=== PATIENT | male | born 1945 | race Asian ===

== ENCOUNTER → 2017-09-07 | Outpatient (CLI) | payer MEDICARE, OTHER ==
[~2017-09-07] MED LIST: ATOR10TA PO; DIL60T PO; DOCU100T15 PO; FER325T PO; GLIM1TAB2 PO; HYDR-4683 PO; PANT1INJ3 PO; SOTA80TA20 PO; TAM04C PO
[2017-09-07 15:52] LABS: Basophils # (auto) 0 uL; Basophils % (auto) 0.5 % (0.0-2.0); Eosinophils # (auto) 0.6 uL; Hemoglobin 12.1 g/dL (13.5-17.5); Lymphocytes # (auto) 1.3 uL; Lymphocytes % (auto) 14.5 % (10.0-50.0); Mean Corpuscular Hemoglobin 31.5 pg (28.0-32.0); Mean Corpuscular Hgb Conc. 32.7 g/dL (32.0-36.0); Mean Corpuscular Volume 96.3 fL (80.0-100.0); Monocytes # (auto) 0.8 uL; Monocytes % (auto) 8.6 % (0.0-12.0); Neutrophils # (auto) 6.4 uL; Neutrophils % (auto) 69.4 % (37.0-80.0); Nucleated Red Blood Cells % 0.1 %; Platelet Count (auto) 287 10^3/uL (140-450); Red Blood Cells 3.85 10^6/uL (4.5-5.90); Red Cell Distribution Width 18.6 % (11.8-14.3); White Blood Cell 9.2 10^3/uL (4.4-10.8)
[2017-09-07 16:39] LABS: BUN/Creatinine Ratio 10.3; Calcium 8.7 mg/dL (8.5-10.1)
== END | disposition home or self-care (01) ==
LOC: LAB 15:28
PROVIDERS: ATTEND Specialist
DX: I13.0 Hypertensive heart and chronic kidney disease with heart failure and stage 1 through stage 4 chronic kidney disease, or unspecified chronic kidney disease (principal); I50.9 Heart failure, unspecified; E11.22 Type 2 diabetes mellitus with diabetic chronic kidney disease; N18.3 Chronic kidney disease, stage 3 (moderate); J44.9 Chronic obstructive pulmonary disease, unspecified; Z79.899 Other long term (current) drug therapy
CPT/HCPCS: 36415; 80048; 83880; 85025

== ENCOUNTER → 2017-10-30 | Outpatient (CLI) | payer MEDICARE, OTHER ==
[2017-10-30 16:58] LABS: Basophils # (auto) 0.1 uL; Eosinophils # (auto) 0.9 uL; Eosinophils % (auto) 9.7 % (0.0-7.0); Hematocrit 41.4 % (41.0-53.0); Hemoglobin 13.7 g/dL (13.5-17.5); Lymphocytes # (auto) 2.1 uL; Lymphocytes % (auto) 22.7 % (10.0-50.0); Mean Corpuscular Hemoglobin 32.6 pg (28.0-32.0); Mean Corpuscular Hgb Conc. 33.2 g/dL (32.0-36.0); Mean Corpuscular Volume 98.2 fL (80.0-100.0); Monocytes # (auto) 0.9 uL; Monocytes % (auto) 9.5 % (0.0-12.0); Neutrophils # (auto) 5.2 uL; Neutrophils % (auto) 57.1 % (37.0-80.0); Nucleated Red Blood Cells % 0.3 %; Platelet Count (auto) 249 10^3/uL (140-450); Red Blood Cells 4.21 10^6/uL (4.5-5.90); Red Cell Distribution Width 15.6 % (11.8-14.3); White Blood Cell 9.1 10^3/uL (4.4-10.8)
[2017-10-30 18:19] LABS: Albumin 3.6 g/dL (3.4-5.0); BUN/Creatinine Ratio 12.6; Bilirubin, Total 0.6 mg/dL (0.2-1.0); Calcium 9.6 mg/dL (8.5-10.1); Potassium 4.8 mmol/L (3.5-5.1); Total Protein 7.8 g/dL (6.4-8.2)
[2017-10-30 18:24] LABS: Cortisol,PM 20.4 ug/dL (3.09-16.66); Free T4 (Free Thyroxine) 1.05 ng/dL (0.89-1.76)
== END | disposition home or self-care (01) ==
LOC: LAB 16:28
PROVIDERS: ATTEND Internal Medicine
DX: E11.9 Type 2 diabetes mellitus without complications (principal); I25.10 Atherosclerotic heart disease of native coronary artery without angina pectoris
CPT/HCPCS: 36415; 80053; 82533; 83036; 84439; 84443; 85025

== ENCOUNTER → 2017-11-11 | Outpatient (CLI) | payer MEDICARE, OTHER ==
[2017-11-11 15:15] LABS: BUN/Creatinine Ratio 12.9; Potassium 4.5 mmol/L (3.5-5.1)
== END | disposition home or self-care (01) ==
LOC: LAB 14:15
PROVIDERS: ATTEND Internal Medicine
DX: I12.9 Hypertensive chronic kidney disease with stage 1 through stage 4 chronic kidney disease, or unspecified chronic kidney disease (principal); E11.22 Type 2 diabetes mellitus with diabetic chronic kidney disease; N18.3 Chronic kidney disease, stage 3 (moderate)
CPT/HCPCS: 36415; 80048

== ENCOUNTER → 2017-12-01 | Outpatient (CLI) | payer MEDICARE, OTHER | END | disposition home or self-care (01) | LOC: LAB 10:54 | PROVIDERS: ATTEND Internal Medicine | DX: I48.91 Unspecified atrial fibrillation (principal); I12.9 Hypertensive chronic kidney disease with stage 1 through stage 4 chronic kidney disease, or unspecified chronic kidney disease; E11.22 Type 2 diabetes mellitus with diabetic chronic kidney disease; N18.3 Chronic kidney disease, stage 3 (moderate); Z79.899 Other long term (current) drug therapy; Z79.4 Long term (current) use of insulin | CPT/HCPCS: 36415; 80162 ==

== ENCOUNTER → 2017-12-15 | Outpatient (CLI) | payer MEDICARE, OTHER | END | disposition home or self-care (01) | LOC: Rad HDHVI 14:41 | PROVIDERS: ATTEND Internal Medicine Cardiovascular Disease | DX: I08.3 Combined rheumatic disorders of mitral, aortic and tricuspid valves (principal); I31.3 Pericardial effusion (noninflammatory); I49.8 Other specified cardiac arrhythmias; I10 Essential (primary) hypertension; I70.0 Atherosclerosis of aorta; Z95.0 Presence of cardiac pacemaker; Z95.1 Presence of aortocoronary bypass graft | CPT/HCPCS: 93306 ==

== ENCOUNTER → 2018-01-13 | Outpatient (CLI) | payer MEDICARE, OTHER ==
[~2018-01-13] MED LIST changes: +APIX2.5T OR; +ASPI81CH43 PO; +ATOR20TA PO; +DIGO0.2570 PO; +FLUC100T PO; +FLUC150T38 PO; +LISI10TA6 PO; +METO-158 PO; +TRAM50TA2 PO
== END | disposition home or self-care (01) ==
LOC: XYW 14:47
PROVIDERS: ATTEND Thoracic Surgery (Cardiothoracic Vascular Surgery)
DX: I25.10 Atherosclerotic heart disease of native coronary artery without angina pectoris (principal); Z95.1 Presence of aortocoronary bypass graft; R23.8 Other skin changes; I12.9 Hypertensive chronic kidney disease with stage 1 through stage 4 chronic kidney disease, or unspecified chronic kidney disease; E11.22 Type 2 diabetes mellitus with diabetic chronic kidney disease; N18.2 Chronic kidney disease, stage 2 (mild)
CPT/HCPCS: 71250

== ENCOUNTER → 2018-01-13 | Outpatient (CLI) | payer MEDICARE, OTHER | END | disposition home or self-care (01) | LOC: LAB 14:57 | PROVIDERS: ATTEND Thoracic Surgery (Cardiothoracic Vascular Surgery) | DX: R23.8 Other skin changes (principal); I12.9 Hypertensive chronic kidney disease with stage 1 through stage 4 chronic kidney disease, or unspecified chronic kidney disease; E11.22 Type 2 diabetes mellitus with diabetic chronic kidney disease; N18.3 Chronic kidney disease, stage 3 (moderate); Z79.899 Other long term (current) drug therapy | CPT/HCPCS: 87205 ==

== ENCOUNTER → 2018-01-13 | Outpatient (CLI) | payer MEDICARE, OTHER ==
[2018-01-13 15:45] LABS: Basophils # (auto) 0.1 uL; Basophils % (auto) 1.1 % (0.0-2.0); Eosinophils # (auto) 0.8 uL; Eosinophils % (auto) 7.4 % (0.0-7.0); Hematocrit 44.9 % (41.0-53.0); Lymphocytes # (auto) 2.2 uL; Lymphocytes % (auto) 19.8 % (10.0-50.0); Mean Corpuscular Hemoglobin 31.2 pg (28.0-32.0); Mean Corpuscular Hgb Conc. 33.5 g/dL (32.0-36.0); Mean Corpuscular Volume 93.1 fL (80.0-100.0); Monocytes % (auto) 8.6 % (0.0-12.0); Neutrophils % (auto) 63.1 % (37.0-80.0); Platelet Count (auto) 221 10^3/uL (140-450); Red Blood Cells 4.82 10^6/uL (4.5-5.90); White Blood Cell 11.1 10^3/uL (4.4-10.8)
[2018-01-13 16:24] LABS: Albumin 4.1 g/dL (3.4-5.0); BUN/Creatinine Ratio 9.9; Bilirubin, Total 1.4 mg/dL (0.2-1.0); Calcium 9.6 mg/dL (8.5-10.1); Potassium 4.5 mmol/L (3.5-5.1); Total Protein 8.1 g/dL (6.4-8.2)
== END | disposition home or self-care (01) ==
LOC: LAB 15:18
PROVIDERS: ATTEND Thoracic Surgery (Cardiothoracic Vascular Surgery)
DX: R23.8 Other skin changes (principal); I12.9 Hypertensive chronic kidney disease with stage 1 through stage 4 chronic kidney disease, or unspecified chronic kidney disease; E11.22 Type 2 diabetes mellitus with diabetic chronic kidney disease; N18.3 Chronic kidney disease, stage 3 (moderate)
CPT/HCPCS: 36415; 80053; 85025

== ENCOUNTER → 2018-01-20 | Outpatient (CLI) | payer MEDICARE, OTHER | END | disposition home or self-care (01) | LOC: LAB 10:13 | PROVIDERS: ATTEND Internal Medicine Cardiovascular Disease | DX: I48.0 Paroxysmal atrial fibrillation (principal); I25.10 Atherosclerotic heart disease of native coronary artery without angina pectoris; I12.9 Hypertensive chronic kidney disease with stage 1 through stage 4 chronic kidney disease, or unspecified chronic kidney disease; N18.3 Chronic kidney disease, stage 3 (moderate); E11.22 Type 2 diabetes mellitus with diabetic chronic kidney disease; J44.9 Chronic obstructive pulmonary disease, unspecified; E11.65 Type 2 diabetes mellitus with hyperglycemia; E11.21 Type 2 diabetes mellitus with diabetic nephropathy; E78.5 Hyperlipidemia, unspecified; Z79.4 Long term (current) use of insulin; Z79.899 Other long term (current) drug therapy | CPT/HCPCS: 36415; 80162; 87205 ==

== ENCOUNTER → 2018-01-20 | Outpatient (CLI) | payer MEDICARE, OTHER ==
[2018-01-20 09:36] LABS: Basophils # (auto) 0.1 uL; Basophils % (auto) 0.7 % (0.0-2.0); Eosinophils # (auto) 0.9 uL; Eosinophils % (auto) 9.1 % (0.0-7.0); Hematocrit 45.2 % (41.0-53.0); Lymphocytes # (auto) 1.8 uL; Lymphocytes % (auto) 18.1 % (10.0-50.0); Mean Corpuscular Hemoglobin 31.3 pg (28.0-32.0); Mean Corpuscular Hgb Conc. 33.1 g/dL (32.0-36.0); Mean Corpuscular Volume 94.5 fL (80.0-100.0); Monocytes # (auto) 0.9 uL; Monocytes % (auto) 9.6 % (0.0-12.0); Neutrophils % (auto) 62.5 % (37.0-80.0); Platelet Count (auto) 207 10^3/uL (140-450); Red Blood Cells 4.78 10^6/uL (4.5-5.90); Red Cell Distribution Width 14.6 % (11.8-14.3); White Blood Cell 9.7 10^3/uL (4.4-10.8)
== END | disposition home or self-care (01) ==
LOC: LAB 09:10
PROVIDERS: ATTEND Thoracic Surgery (Cardiothoracic Vascular Surgery)
DX: D68.9 Coagulation defect, unspecified (principal); I25.10 Atherosclerotic heart disease of native coronary artery without angina pectoris; J44.9 Chronic obstructive pulmonary disease, unspecified; E78.5 Hyperlipidemia, unspecified; I12.9 Hypertensive chronic kidney disease with stage 1 through stage 4 chronic kidney disease, or unspecified chronic kidney disease; N18.2 Chronic kidney disease, stage 2 (mild); E11.22 Type 2 diabetes mellitus with diabetic chronic kidney disease; E11.65 Type 2 diabetes mellitus with hyperglycemia; Z79.899 Other long term (current) drug therapy; Z95.1 Presence of aortocoronary bypass graft; Z79.4 Long term (current) use of insulin
CPT/HCPCS: 36415; 85025

== ENCOUNTER → 2018-02-01 | Outpatient (CLI) | payer MEDICARE, OTHER ==
[~2018-02-01] MED LIST changes: +ETOMIDATE (2MG/ML) 20ML VIAL IV ONE; +MIDAZOLAM HCL 1MG/1ML-2 ML VIAL ONE; +ONDANSETRON HCL 4 MG/2 ML VIAL ONE; +ROCURONIUM 10MG/ML 10ML VIAL IV ONE; +SUCCINYLCHOLINE CHLORIDE 20 MG/ML 10ML VIAL IV ONE; +fentaNYL CITRATE 100 MCG/2 ML VL ONE
== END | disposition home or self-care (01) ==
LOC: XYW 10:52
PROVIDERS: ATTEND Thoracic Surgery (Cardiothoracic Vascular Surgery)
DX: Z01.810 Encounter for preprocedural cardiovascular examination (principal); I25.10 Atherosclerotic heart disease of native coronary artery without angina pectoris; I08.2 Rheumatic disorders of both aortic and tricuspid valves
CPT/HCPCS: 93306

== ENCOUNTER 2018-02-04 23:00 | Inpatient (IN) | payer MEDICARE, OTHER ==
[~2018-02-04] VITALS: Ht 172.7 cm; Wt 68.0 kg
[~2018-02-04 23:00] MED LIST changes: -ATOR10TA PO; -DIL60T PO; -DOCU100T15 PO; -ETOMIDATE (2MG/ML) 20ML VIAL IV ONE; -FLUC100T PO; -GLIM1TAB2 PO; -HYDR-4683 PO; -MIDAZOLAM HCL 1MG/1ML-2 ML VIAL ONE; -ONDANSETRON HCL 4 MG/2 ML VIAL ONE; -PANT1INJ3 PO; -ROCURONIUM 10MG/ML 10ML VIAL IV ONE; -SOTA80TA20 PO; -SUCCINYLCHOLINE CHLORIDE 20 MG/ML 10ML VIAL IV ONE; -TAM04C PO; -fentaNYL CITRATE 100 MCG/2 ML VL ONE
[2018-02-05 00:15] LABS: Basophils # (auto) 0.1 uL; Basophils % (auto) 0.6 % (0.0-2.0); Eosinophils # (auto) 0.4 uL; Eosinophils % (auto) 4.1 % (0.0-7.0); Hematocrit 36.6 % (41.0-53.0); Hemoglobin 12.2 g/dL (13.5-17.5); Lymphocytes # (auto) 1.3 uL; Lymphocytes % (auto) 13.7 % (10.0-50.0); Mean Corpuscular Hemoglobin 31.2 pg (28.0-32.0); Mean Corpuscular Hgb Conc. 33.3 g/dL (32.0-36.0); Mean Corpuscular Volume 93.7 fL (80.0-100.0); Monocytes # (auto) 0.8 uL; Monocytes % (auto) 8.9 % (0.0-12.0); Neutrophils # (auto) 6.9 uL; Neutrophils % (auto) 72.7 % (37.0-80.0); Platelet Count (auto) 191 10^3/uL (140-450); Red Cell Distribution Width 14.6 % (11.8-14.3); White Blood Cell 9.5 10^3/uL (4.4-10.8)
[2018-02-05 00:31] LABS: Albumin 2.8 g/dL (3.4-5.0); BUN/Creatinine Ratio 13.3; Calcium 8.1 mg/dL (8.5-10.1); Magnesium 2.1 mg/dL (1.6-2.6); Potassium 4.6 mmol/L (3.5-5.1)
[2018-02-05 00:35] LABS: Bilirubin, Total 0.5 mg/dL (0.2-1.0); Total Protein 6.1 g/dL (6.4-8.2)
[2018-02-05 00:36] LABS: INR 1.04 (0.9-1.15); Partial Thromboplastin Time 31.6 sec (23.78-33.04); Prothrombin Time 11.1 sec (9.27-12.13)
[2018-02-05] MEDS ORDERED: ONDANSETRON HCL 4 MG/2 ML VIAL IV PRN (06:00)
[2018-02-05 06:28] LABS: Hematocrit 35.5 % (41.0-53.0); Hemoglobin 12.1 g/dL (13.5-17.5)
[2018-02-05] MEDS ORDERED: APIXABAN 2.5 MG TAB PO SCH (10:00)
[2018-02-05] MEDS ORDERED: DIGOXIN 0.125 MG TAB PO SCH (10:00)
[2018-02-05] MEDS ORDERED: PANTOPRAZOLE 40 MG TAB PO SCH (10:00)
[2018-02-05] MEDS ORDERED: LISINOPRIL 20 MG TAB PO SCH (10:00)
[2018-02-05 13:00] VITALS: BP 179/101
[2018-02-05] MEDS ORDERED: cloNIDine HCL 0.1 MG TAB PO PRN (14:00)
[2018-02-05] MEDS ORDERED: SODIUM CHLORIDE 0.9% 1,000 ML IV ONE (16:00)
[2018-02-05] MEDS ORDERED: SODIUM CHLORIDE 0.9% 250 ML IV ONE (16:15)
[2018-02-05 16:39] VITALS: BP 138/76
[2018-02-05 17:22] VITALS: BP 138/76
[2018-02-05 17:44] VITALS: BP 138/76
[2018-02-05] MEDS ORDERED: ATORVASTATIN 20 MG TAB PO SCH (22:00)
[2018-02-05] MEDS ORDERED: METOPROLOL SUCCINATE XL 50 MG TAB PO SCH (22:00)
== END 2018-02-05 18:53 | disposition home or self-care (01) | DRG 863 ==
LOC: EDBD 23:00 → ER 23:09 → CENTRAL 23:10 → ER 02-05 11:25 → TELE-CENTR 02-05 12:14
PROVIDERS: ADMIT Nurse Practitioner; ATTEND Nurse Practitioner
PROC: 2W04X6Z Change Pressure Dressing on Chest Wall (ICD-10-PCS; principal; 2018-02-04)
DX: T81.4XXA Infection following a procedure, initial encounter (principal); D68.9 Coagulation defect, unspecified; I13.0 Hypertensive heart and chronic kidney disease with heart failure and stage 1 through stage 4 chronic kidney disease, or unspecified chronic kidney disease; N17.9 Acute kidney failure, unspecified; E11.22 Type 2 diabetes mellitus with diabetic chronic kidney disease; E78.5 Hyperlipidemia, unspecified; F17.210 Nicotine dependence, cigarettes, uncomplicated; I25.10 Atherosclerotic heart disease of native coronary artery without angina pectoris; S60.511A Abrasion of right hand, initial encounter; W18.39XA Other fall on same level, initial encounter; I50.9 Heart failure, unspecified; I48.2 Chronic atrial fibrillation; I95.9 Hypotension, unspecified; J44.9 Chronic obstructive pulmonary disease, unspecified; N18.9 Chronic kidney disease, unspecified; Z95.0 Presence of cardiac pacemaker; Z95.1 Presence of aortocoronary bypass graft; Y93.89 Activity, other specified; Y92.89 Other specified places as the place of occurrence of the external cause; Y99.8 Other external cause status; Z88.6 Allergy status to analgesic agent; Z88.8 Allergy status to other drugs, medicaments and biological substances; Z79.899 Other long term (current) drug therapy; Z90.49 Acquired absence of other specified parts of digestive tract; I25.2 Old myocardial infarction; N18.3 Chronic kidney disease, stage 3 (moderate)
CPT/HCPCS: 36415; 71045; 71250; 80053; 82962; 83735; 84443; 84484; 85014; 85018; 85025; 85379; 85610; 85730; 87081; 93005; 93306; 96360

== ENCOUNTER 2018-02-06 23:39 | Emergency (ER) | payer MEDICARE, OTHER ==
[~2018-02-06] VITALS: Ht 172.7 cm; Wt 68.0 kg
[2018-02-07 00:15] VITALS: BP 141/76
== END 2018-02-07 02:00 | disposition home or self-care (01) ==
LOC: ER 23:39
DX: T81.4XXA Infection following a procedure, initial encounter (principal); I12.9 Hypertensive chronic kidney disease with stage 1 through stage 4 chronic kidney disease, or unspecified chronic kidney disease; E11.22 Type 2 diabetes mellitus with diabetic chronic kidney disease; N18.9 Chronic kidney disease, unspecified; J44.9 Chronic obstructive pulmonary disease, unspecified; E78.5 Hyperlipidemia, unspecified; I25.2 Old myocardial infarction; I48.91 Unspecified atrial fibrillation; F17.210 Nicotine dependence, cigarettes, uncomplicated; Z88.2 Allergy status to sulfonamides; Z88.6 Allergy status to analgesic agent; Z95.1 Presence of aortocoronary bypass graft

== ENCOUNTER → 2018-02-09 | Outpatient (CLI) | payer MEDICARE, OTHER ==
[2018-02-09 15:38] LABS: Basophils # (auto) 0.1 uL; Basophils % (auto) 0.9 % (0.0-2.0); Eosinophils # (auto) 0.7 uL; Eosinophils % (auto) 7.3 % (0.0-7.0); Hematocrit 39.9 % (41.0-53.0); Hemoglobin 13.6 g/dL (13.5-17.5); Lymphocytes # (auto) 2.3 uL; Lymphocytes % (auto) 25.2 % (10.0-50.0); Mean Corpuscular Hemoglobin 31.9 pg (28.0-32.0); Mean Corpuscular Hgb Conc. 34.2 g/dL (32.0-36.0); Mean Corpuscular Volume 93.3 fL (80.0-100.0); Monocytes # (auto) 0.9 uL; Neutrophils # (auto) 5.2 uL; Neutrophils % (auto) 56.6 % (37.0-80.0); Nucleated Red Blood Cells % 0.1 %; Platelet Count (auto) 250 10^3/uL (140-450); Red Blood Cells 4.27 10^6/uL (4.5-5.90); Red Cell Distribution Width 14.3 % (11.8-14.3); White Blood Cell 9.3 10^3/uL (4.4-10.8)
[2018-02-09 15:46] LABS: Albumin 3.9 g/dL (3.4-5.0); BUN/Creatinine Ratio 11.1; Calcium 9.4 mg/dL (8.5-10.1); Potassium 4.1 mmol/L (3.5-5.1)
[2018-02-10 11:57] LABS: Partial Thromboplastin Time 31.3 sec (23.78-33.04); Prothrombin Time 10.7 sec (9.27-12.13)
== END | disposition home or self-care (01) ==
LOC: LAB 14:10
PROVIDERS: ATTEND Internal Medicine
DX: R58 Hemorrhage, not elsewhere classified (principal); J44.9 Chronic obstructive pulmonary disease, unspecified; I12.9 Hypertensive chronic kidney disease with stage 1 through stage 4 chronic kidney disease, or unspecified chronic kidney disease; E11.22 Type 2 diabetes mellitus with diabetic chronic kidney disease; N18.3 Chronic kidney disease, stage 3 (moderate); Z79.899 Other long term (current) drug therapy
CPT/HCPCS: 36415; 80053; 83615; 85025; 85246; 85610; 85730

== ENCOUNTER → 2018-03-26 | Outpatient (CLI) | payer MEDICARE, OTHER ==
[2018-03-26 11:30] LABS: Basophils # (auto) 0.1 uL; Basophils % (auto) 1.1 % (0.0-2.0); Eosinophils # (auto) 0.6 uL; Eosinophils % (auto) 7.5 % (0.0-7.0); Hematocrit 41.1 % (41.0-53.0); Hemoglobin 13.9 g/dL (13.5-17.5); Lymphocytes % (auto) 23.7 % (10.0-50.0); Mean Corpuscular Hemoglobin 31.8 pg (28.0-32.0); Mean Corpuscular Hgb Conc. 33.8 g/dL (32.0-36.0); Mean Corpuscular Volume 94.2 fL (80.0-100.0); Monocytes # (auto) 0.8 uL; Monocytes % (auto) 9.8 % (0.0-12.0); Neutrophils # (auto) 4.9 uL; Neutrophils % (auto) 57.9 % (37.0-80.0); Platelet Count (auto) 196 10^3/uL (140-450); Red Blood Cells 4.36 10^6/uL (4.5-5.90); Red Cell Distribution Width 13.8 % (11.8-14.3); White Blood Cell 8.4 10^3/uL (4.4-10.8)
[2018-03-26 12:26] LABS: Albumin 3.6 g/dL (3.4-5.0); BUN/Creatinine Ratio 14.2; Bilirubin, Total 0.6 mg/dL (0.2-1.0); Calcium 8.8 mg/dL (8.5-10.1); Potassium 4.1 mmol/L (3.5-5.1); Total Protein 7.5 g/dL (6.4-8.2)
== END | disposition home or self-care (01) ==
LOC: LAB 11:14
PROVIDERS: ATTEND Thoracic Surgery (Cardiothoracic Vascular Surgery)
DX: I25.10 Atherosclerotic heart disease of native coronary artery without angina pectoris (principal); Z95.0 Presence of cardiac pacemaker; Z79.899 Other long term (current) drug therapy
CPT/HCPCS: 36415; 80053; 85025

== ENCOUNTER → 2018-04-15 | Outpatient (CLI) | payer MEDICARE, OTHER | END | disposition home or self-care (01) | LOC: LAB 14:08 | PROVIDERS: ATTEND Specialist | DX: T81.4XXA Infection following a procedure, initial encounter (principal); Y83.8 Other surgical procedures as the cause of abnormal reaction of the patient, or of later complication, without mention of misadventure at the time of the procedure; Y92.89 Other specified places as the place of occurrence of the external cause | CPT/HCPCS: 87205 ==

== ENCOUNTER → 2018-04-15 | Outpatient (CLI) | payer MEDICARE, OTHER | END | disposition home or self-care (01) | LOC: XYW 11:39 | PROVIDERS: ATTEND Specialist | DX: I25.10 Atherosclerotic heart disease of native coronary artery without angina pectoris (principal); J44.9 Chronic obstructive pulmonary disease, unspecified; I12.9 Hypertensive chronic kidney disease with stage 1 through stage 4 chronic kidney disease, or unspecified chronic kidney disease; E11.22 Type 2 diabetes mellitus with diabetic chronic kidney disease; N18.9 Chronic kidney disease, unspecified; I48.91 Unspecified atrial fibrillation; F17.210 Nicotine dependence, cigarettes, uncomplicated; Z95.1 Presence of aortocoronary bypass graft; Z95.0 Presence of cardiac pacemaker | CPT/HCPCS: 72070 ==

== ENCOUNTER → 2020-03-22 | Outpatient (CLI) | payer MEDICARE, OTHER ==
[~2020-03-22] MED LIST changes: +DIGO0.25 PO; -DIGO0.2570 PO; +LISI-648 PO; -LISI10TA6 PO
== END | disposition home or self-care (01) ==
LOC: LAB 15:20
PROVIDERS: ATTEND Urology
DX: R31.9 Hematuria, unspecified (principal)
CPT/HCPCS: 87086

== ENCOUNTER → 2020-05-24 | Day surgery (SDC) | payer MEDICARE, OTHER ==
[2020-05-18 14:17] LABS: Basophils # (auto) 0.1 10 ^3/uL (0-0.2); Basophils % (auto) 0.9 % (0.0-2.0); Eosinophils # (auto) 0.7 10 ^3/uL (0-0.8); Eosinophils % (auto) 8.7 % (0.0-7.0); Hematocrit 41.7 % (41.0-53.0); Hemoglobin 13.9 g/dL (13.5-17.5); Lymphocytes # (auto) 1.8 10 ^3/uL (0.4-5.4); Lymphocytes % (auto) 22.3 % (10.0-50.0); Mean Corpuscular Hemoglobin 31.3 pg (28.0-32.0); Mean Corpuscular Hgb Conc. 33.2 g/dL (32.0-36.0); Mean Corpuscular Volume 94.2 fL (80.0-100.0); Monocytes # (auto) 0.8 10 ^3/uL (0-1.3); Monocytes % (auto) 9.3 % (0.0-12.0); Neutrophils # (auto) 4.8 10 ^3/uL (1.6-8.6); Neutrophils % (auto) 58.8 % (37.0-80.0); Platelet Count (auto) 268 10^3/uL (140-450); Red Blood Cells 4.43 10^6/uL (4.5-5.90); Red Cell Distribution Width 13.4 % (11.8-14.3); White Blood Cell 8.2 10^3/uL (4.4-10.8)
[2020-05-18 14:25] LABS: Urine Bacteria FEW /hpf (None Seen); Urine Blood 2+ /uL (Negative); Urine Mucus FEW (None Seen); Urine Specific Gravity 1.013 (1.001-1.035); Urine WBC 3 /hpf (0 - 3)
[2020-05-18 14:27] LABS: Calcium 9.3 mg/dL (8.5-10.1); INR 1.06 (0.9-1.15); Partial Thromboplastin Time 27.2 sec (23.0-31.2); Potassium 4.2 mmol/L (3.5-5.1)
[2020-05-18 14:31] LABS: BUN/Creatinine Ratio 11.7; Bilirubin, Total 0.5 mg/dL (0.2-1.0); Total Protein 7.5 g/dL (6.4-8.2)
[~2020-05-24] VITALS: Ht 172.7 cm; Wt 72.6 kg
[~2020-05-24] MED LIST changes: +ACCU-CHEK COMFORT CURVE STRIP VI ONE; +AMLO5TAB15 PO; -APIX2.5T OR; +CHOL20007 OR; -DIGO0.25 PO; +DOXAPRAM HCL 20 MG/ML 20ML VIAL INJ IV ONE; +FAMOTIDINE (10MG/ML) 2ML VL IV ONE; -FLUC150T38 PO; +GLYCOPYRROLATE 0.2 MG/ML 1ML VIAL ONE; +LIDOCAINE 2% (LOCAL ANESTH.) PF 5ml SDV ONE; -LISI-648 PO; +MEPERIDINE HCL (50 MG/ML) 1 ML VIAL ONE; -METO-158 PO; +MIDAZOLAM HCL 1MG/1ML-2 ML VIAL ONE; +MORPHINE SULFATE 4 MG/ML SYR/VIAL IV PRN; +NEOSTIGMINE 1 MG/ML INJ (10mg/10ML VIAL) ONE; +ONDANSETRON HCL 4 MG/2 ML VIAL IV PRN; +ONDANSETRON HCL 4 MG/2 ML VIAL ONE; +PROPOFOL 10 MG/ML 20 ML IV ONE; +ROCURONIUM 10MG/ML 10ML VIAL IV ONE; +SOTA80TA PO; -TRAM50TA2 PO; +ceFAZolin 1GM/50ML 50 ML IV ONE; +ePHEDrine SULFATE 50 MG/ML AMP ONE; +fentaNYL CITRATE 100 MCG/2 ML VL ONE
[2020-05-24 13:15] VITALS: BP 133/81
== END | disposition home or self-care (01) ==
LOC: SUR 06:42
PROVIDERS: ATTEND Urology
DX: D49.4 Neoplasm of unspecified behavior of bladder (principal); C67.4 Malignant neoplasm of posterior wall of bladder; I10 Essential (primary) hypertension; I25.810 Atherosclerosis of coronary artery bypass graft(s) without angina pectoris; E11.9 Type 2 diabetes mellitus without complications; I48.91 Unspecified atrial fibrillation; K21.9 Gastro-esophageal reflux disease without esophagitis; Z88.1 Allergy status to other antibiotic agents; Z96.89 Presence of other specified functional implants; Z20.828 Contact with and (suspected) exposure to other viral communicable diseases; Z98.890 Other specified postprocedural states; Z79.899 Other long term (current) drug therapy
CPT/HCPCS: 36415; 52240; 80053; 81001; 82962; 85025; 85610; 85730; 88307; J0690; J2001; J2175; J2250; J2405; J2704; J3010; J3490; U0003

== ENCOUNTER 2020-05-25 18:32 | Emergency (ER) | payer MEDICARE, OTHER ==
[~2020-05-25] VITALS: Ht 172.7 cm; Wt 72.6 kg
[~2020-05-25 18:32] MED LIST changes: -ACCU-CHEK COMFORT CURVE STRIP VI ONE; -DOXAPRAM HCL 20 MG/ML 20ML VIAL INJ IV ONE; -FAMOTIDINE (10MG/ML) 2ML VL IV ONE; -GLYCOPYRROLATE 0.2 MG/ML 1ML VIAL ONE; -LIDOCAINE 2% (LOCAL ANESTH.) PF 5ml SDV ONE; -MEPERIDINE HCL (50 MG/ML) 1 ML VIAL ONE; -MIDAZOLAM HCL 1MG/1ML-2 ML VIAL ONE; -MORPHINE SULFATE 4 MG/ML SYR/VIAL IV PRN; -NEOSTIGMINE 1 MG/ML INJ (10mg/10ML VIAL) ONE; -ONDANSETRON HCL 4 MG/2 ML VIAL IV PRN; -ONDANSETRON HCL 4 MG/2 ML VIAL ONE; -PROPOFOL 10 MG/ML 20 ML IV ONE; -ROCURONIUM 10MG/ML 10ML VIAL IV ONE; -ceFAZolin 1GM/50ML 50 ML IV ONE; -ePHEDrine SULFATE 50 MG/ML AMP ONE; -fentaNYL CITRATE 100 MCG/2 ML VL ONE
[2020-05-25 20:05] LABS: Urine Bacteria FEW /hpf (None Seen); Urine Blood 3+ /uL (Negative); Urine Hyaline Cast FEW /lpf (0 - 2); Urine WBC 101 /hpf (0 - 3)
[2020-05-25 20:40] VITALS: BP 155/72
== END 2020-05-25 21:07 | disposition home or self-care (01) ==
LOC: ER 18:32
DX: N13.9 Obstructive and reflux uropathy, unspecified (principal); N30.00 Acute cystitis without hematuria; F17.210 Nicotine dependence, cigarettes, uncomplicated; J44.9 Chronic obstructive pulmonary disease, unspecified; E11.9 Type 2 diabetes mellitus without complications; E78.5 Hyperlipidemia, unspecified
CPT/HCPCS: 81001

== ENCOUNTER 2020-05-27 11:18 | Inpatient (IN) | payer MEDICARE, OTHER ==
[~2020-05-27] VITALS: Ht 172.7 cm; Wt 70.0 kg
[2020-05-27 12:21] LABS: Urine Bacteria NONE SEEN /hpf (None Seen); Urine Blood 3+ /uL (Negative); Urine Mucus FEW (None Seen); Urine Specific Gravity 1.013 (1.001-1.035); Urine WBC 418 /hpf (0 - 3)
[2020-05-27] MEDS ORDERED: SODIUM CHLORIDE 0.9% 500 ML IVB ONE (16:15)
[2020-05-27] MEDS ORDERED: cefTRIAXone 1GM/50ML D5W 50 ML IV ONE ×2 (16:15→18:00)
[2020-05-27] MEDS ORDERED: SODIUM CHLORIDE 0.9% 1,000 ML IV ONE (16:15)
[2020-05-27 16:22] LABS: Basophils # (auto) 0.1 10 ^3/uL (0-0.2); Basophils % (auto) 0.7 % (0.0-2.0); Eosinophils # (auto) 0.3 10 ^3/uL (0-0.8); Eosinophils % (auto) 3.7 % (0.0-7.0); Hematocrit 40.6 % (41.0-53.0); Hemoglobin 13.4 g/dL (13.5-17.5); Lymphocytes # (auto) 1.8 10 ^3/uL (0.4-5.4); Lymphocytes % (auto) 20.8 % (10.0-50.0); Mean Corpuscular Volume 93.8 fL (80.0-100.0); Monocytes # (auto) 1.1 10 ^3/uL (0-1.3); Monocytes % (auto) 13.4 % (0.0-12.0); Neutrophils # (auto) 5.2 10 ^3/uL (1.6-8.6); Neutrophils % (auto) 61.4 % (37.0-80.0); Platelet Count (auto) 267 10^3/uL (140-450); Red Blood Cells 4.33 10^6/uL (4.5-5.90); Red Cell Distribution Width 13.3 % (11.8-14.3); White Blood Cell 8.5 10^3/uL (4.4-10.8)
[2020-05-27 16:45] LABS: Albumin 3.9 g/dL (3.4-5.0); Potassium 4.8 mmol/L (3.5-5.1)
[2020-05-27 16:49] LABS: BUN/Creatinine Ratio 12.4; Bilirubin, Total 0.7 mg/dL (0.2-1.0); Calcium 10.1 mg/dL (8.5-10.1); Total Protein 8.1 g/dL (6.4-8.2)
[2020-05-27] MEDS ORDERED: TAMSULOSIN HYDROCHLORIDE 0.4 MG CAP PO ONE (18:00)
[2020-05-27] MEDS ORDERED: cloNIDine HCL 0.1 MG TAB PO PRN (20:00)
[2020-05-27] MEDS ORDERED: SODIUM CHLORIDE 0.9% 1,000 ML IV SCH (20:00)
[2020-05-27] MEDS ORDERED: MORPHINE SULF INJ 2 MG/ML SYRINGE 1ML IV PRN (20:00)
[2020-05-27] MEDS ORDERED: NITROGLYCERIN 0.4 MG SL TAB SL PRN (20:00)
[2020-05-27 23:00] VITALS: BP 146/75
[2020-05-27] MEDS ORDERED: TEMAZEPAM 15 MG CAP PO ONE (23:00)
--- NOTE | 2020-05-27 23:05 | NUR ---
ms admit from ed pt arrived awake alert and oriented x4 on room air. no distress noted or expressed. pt oriented to this nurse as well as room, bed controls, use of call light and restroom. pt updated on plan of care. pt denies any pain. has niño in place secured, below the waist and draining bright red. pt has 20g to rfa running ns at 100ml/hr. bed locked, low and 2x rails up. call light in reach. pt encouraged to call as needed. this nurse to round q1hr and prn. pt lower abdomen is soft, nontender and non distended. pt denies any feeling of fullness or urge to urinate at this time, as opposed to how he felt prior niño placement. this nurse encouraged pt to alert this nurse if discomfort or feeling of fullness or retention occur.
[2020-05-27] MEDS: FERROUS SULFATE 325 MG TAB PO SCH (23:11)
[2020-05-27] MEDS: SOTALOL HCL 80 MG TAB PO SCH (23:11)
--- NOTE | 2020-05-28 03:39 | NUR ---
no output from niño. pt complained of fullness in the bladder, this nurse and charge jenifer proceeded to flush niño with syringe and numerous large and small clots were removed, 400 ml of bright red output was noted. we continued to flush until output appeared light pink. pt tolerated well and denied any pain throughout. pt abdomen is soft and non tender to touch. call light in reach. pt encouraged to call as needed.
[2020-05-28 05:00] VITALS: BP 103/57
[2020-05-28 06:13] LABS: Basophils # (auto) 0.1 10 ^3/uL (0-0.2); Basophils % (auto) 0.7 % (0.0-2.0); Eosinophils # (auto) 0.4 10 ^3/uL (0-0.8); Eosinophils % (auto) 5.1 % (0.0-7.0); Hematocrit 33.8 % (41.0-53.0); Hemoglobin 11.2 g/dL (13.5-17.5); Lymphocytes # (auto) 1.6 10 ^3/uL (0.4-5.4); Mean Corpuscular Hemoglobin 31.3 pg (28.0-32.0); Mean Corpuscular Hgb Conc. 33.2 g/dL (32.0-36.0); Mean Corpuscular Volume 94.3 fL (80.0-100.0); Monocytes % (auto) 13.7 % (0.0-12.0); Neutrophils # (auto) 4.2 10 ^3/uL (1.6-8.6); Neutrophils % (auto) 58.5 % (37.0-80.0); Platelet Count (auto) 235 10^3/uL (140-450); Red Blood Cells 3.58 10^6/uL (4.5-5.90); Red Cell Distribution Width 13.5 % (11.8-14.3); White Blood Cell 7.2 10^3/uL (4.4-10.8)
[2020-05-28 06:32] LABS: BUN/Creatinine Ratio 14.8; Calcium 8.6 mg/dL (8.5-10.1); Potassium 4.1 mmol/L (3.5-5.1)
[2020-05-28 08:00] VITALS: BP 138/72
[2020-05-28] MEDS: FAMOTIDINE 20 MG TAB PO SCH (09:33)
[2020-05-28] MEDS: SOTALOL HCL 80 MG TAB PO SCH ×2 (09:33→22:20)
[2020-05-28] MEDS: FERROUS SULFATE 325 MG TAB PO SCH ×2 (09:34→21:19)
[2020-05-28] MEDS: amLODIPine BESYLATE 5 MG TAB PO SCH (09:34)
[2020-05-28] MEDS ORDERED: FAMOTIDINE 20 MG TAB PO SCH (10:00)
[2020-05-28] MEDS ORDERED: LIDOCAINE 2% JELLY 11ml (GLYDO) UR ONE (11:45)
[2020-05-28 12:00] VITALS: BP 133/77
[2020-05-28] MEDS: MORPHINE SULF INJ 2 MG/ML SYRINGE 1ML IV PRN ×3 (12:34→21:20)
[2020-05-28] MEDS: ONDANSETRON HCL 4 MG/2 ML VIAL IV PRN ×2 (12:34→18:33)
[2020-05-28] MEDS: SODIUM CHLORIDE 0.9% 1,000 ML IV SCH (12:35)
[2020-05-28 17:01] VITALS: BP 133/69
--- NOTE | 2020-05-28 17:55 | NUR ---
JUANITA LYNCH AT BEDSIDE ASSESSING PT. PER REACTOR OPERATOR KEEP CBI AT FULL OPEN UNTIL URINE IS CLEARED THAN CLAMP THE IRRIGATION, KEEP F/C .
[2020-05-28] MEDS: ATORVASTATIN 20 MG TAB PO SCH (18:07)
--- NOTE | 2020-05-28 19:23 | NUR ---
[place] [address] [place] [id number][place] [id number] [place] [id number].
--- NOTE | 2020-05-28 21:17 | NUR ---
pt niño flushed r/t clotting, call out for bags of fluid to continue CBI, using NS bags at this time.
[2020-05-28 22:00] VITALS: BP 133/72
[2020-05-29] MEDS: SODIUM CHLORIDE 0.9% 1,000 ML IV SCH ×2 (03:40→22:56)
[2020-05-29 05:00] VITALS: BP 125/69
[2020-05-29 06:17] LABS: Basophils # (auto) 0.1 10 ^3/uL (0-0.2); Basophils % (auto) 0.7 % (0.0-2.0); Eosinophils # (auto) 0.4 10 ^3/uL (0-0.8); Hematocrit 30.8 % (41.0-53.0); Hemoglobin 10.4 g/dL (13.5-17.5); Lymphocytes # (auto) 1.2 10 ^3/uL (0.4-5.4); Lymphocytes % (auto) 13.9 % (10.0-50.0); Mean Corpuscular Hemoglobin 31.8 pg (28.0-32.0); Mean Corpuscular Hgb Conc. 33.8 g/dL (32.0-36.0); Mean Corpuscular Volume 94.1 fL (80.0-100.0); Monocytes # (auto) 1.2 10 ^3/uL (0-1.3); Monocytes % (auto) 13.3 % (0.0-12.0); Neutrophils # (auto) 6.1 10 ^3/uL (1.6-8.6); Neutrophils % (auto) 68.1 % (37.0-80.0); Platelet Count (auto) 253 10^3/uL (140-450); Red Blood Cells 3.28 10^6/uL (4.5-5.90); Red Cell Distribution Width 13.1 % (11.8-14.3)
[2020-05-29 06:25] LABS: INR 1.05 (0.9-1.15); Partial Thromboplastin Time 27.9 sec (23.0-31.2)
[2020-05-29 06:38] LABS: Potassium 4.1 mmol/L (3.5-5.1)
[2020-05-29 06:44] LABS: BUN/Creatinine Ratio 15.6; Calcium 8.4 mg/dL (8.5-10.1)
--- NOTE | 2020-05-29 06:55 | NUR ---
CBI intake 30,000, output 40,100
[2020-05-29] MEDS: MORPHINE SULF INJ 2 MG/ML SYRINGE 1ML IV PRN (08:03)
[2020-05-29 08:34] VITALS: BP 138/87
[2020-05-29] MEDS: FERROUS SULFATE 325 MG TAB PO SCH ×2 (09:51→22:57)
[2020-05-29] MEDS: amLODIPine BESYLATE 5 MG TAB PO SCH (09:52)
[2020-05-29] MEDS: SOTALOL HCL 80 MG TAB PO SCH ×2 (09:52→22:57)
[2020-05-29] MEDS: FAMOTIDINE 20 MG TAB PO SCH (09:52)
--- NOTE | 2020-05-29 11:11 | NUR ---
CBI Patient was seen by Dr. Dyer, who wanted to D/C the patient. Patient's urinary output is still red to pink. was notified of this and went to see the patient. He said to clamp the CBI and monitor output. This nurse clamped the CBI at 1050. At 1108, the patient called to have it checked. The output is dark red with red sediment and a blood clot was seen in the tubing. The CBI was restarted and flushed. The output is now a wood repatcher clear pink. This nurse informed the patient that we will let the CBI run right now and then try clamping it again in a little while. The CBI was clamped for approximately 15 minutes.
[2020-05-29 13:00] VITALS: BP 138/72
--- NOTE | 2020-05-29 15:22 | NUR ---
CBI Clamped tubing again. There was not much output during this time but the output was a dark red with sediment. This nurse emptied the fluid from the tubing and kept it clamped 10 more minutes. Same result. Restarted CBI. It is draining well. No clots seen by this nurse.
[2020-05-29 17:00] VITALS: BP 128/67
[2020-05-29] MEDS: ATORVASTATIN 20 MG TAB PO SCH (18:26)
--- NOTE | 2020-05-29 18:32 | NUR ---
CBI Intake/Output CBI output 32,725 CBI intake 24,000
--- NOTE | 2020-05-29 18:53 | NUR ---
CBI Intake/Output Intake 3,000 Output 2,500 diaz colored urine
[2020-05-29 22:00] VITALS: BP_SYST 101; BP_SYST 137; BP_DIAS 57; BP_DIAS 60
[2020-05-30 05:00] VITALS: BP 134/55
[2020-05-30 06:53] LABS: Basophils # (auto) 0 10 ^3/uL (0-0.2); Basophils % (auto) 0.5 % (0.0-2.0); Eosinophils # (auto) 0.4 10 ^3/uL (0-0.8); Eosinophils % (auto) 4.9 % (0.0-7.0); Hematocrit 28.3 % (41.0-53.0); Hemoglobin 9.6 g/dL (13.5-17.5); Lymphocytes # (auto) 1.3 10 ^3/uL (0.4-5.4); Lymphocytes % (auto) 15.2 % (10.0-50.0); Mean Corpuscular Hemoglobin 31.8 pg (28.0-32.0); Mean Corpuscular Volume 93.7 fL (80.0-100.0); Monocytes % (auto) 11.3 % (0.0-12.0); Neutrophils # (auto) 5.9 10 ^3/uL (1.6-8.6); Neutrophils % (auto) 68.1 % (37.0-80.0); Platelet Count (auto) 233 10^3/uL (140-450); Red Blood Cells 3.02 10^6/uL (4.5-5.90); Red Cell Distribution Width 13.4 % (11.8-14.3); White Blood Cell 8.7 10^3/uL (4.4-10.8)
[2020-05-30 06:57] LABS: Potassium 4.1 mmol/L (3.5-5.1)
[2020-05-30 07:03] LABS: BUN/Creatinine Ratio 12.7; Calcium 8.7 mg/dL (8.5-10.1)
--- NOTE | 2020-05-30 07:40 | NUR ---
Received patient from [facility] shift rn, Will. Patient awake, A/O x4. Denies pain, no SOB, not in apparent distress. Plan of care discussed. Safety measures in place, bed in low and locked position with 2x rails up. Pardo draining clear, pink color, on continuous bladder irrigation. Will continue to monitor q1hr and prn.
[2020-05-30 08:00] VITALS: BP 151/77
[2020-05-30 09:00] VITALS: BP 151/77
[2020-05-30] MEDS: FERROUS SULFATE 325 MG TAB PO SCH ×2 (10:33→22:31)
[2020-05-30] MEDS: amLODIPine BESYLATE 5 MG TAB PO SCH (10:34)
[2020-05-30] MEDS: SOTALOL HCL 80 MG TAB PO SCH ×2 (10:35→22:31)
[2020-05-30] MEDS: FAMOTIDINE 20 MG TAB PO SCH (10:35)
--- NOTE | 2020-05-30 10:55 | NUR ---
Dr. Dyer at bedside, discussed plan of care with patient. Will continue to monitor q1hr and prn.
[2020-05-30 13:00] VITALS: BP 153/79
[2020-05-30] MEDS ORDERED: levoFLOXacin 250MG 50 ML IV ONE (13:00)
--- NOTE | 2020-05-30 15:39 | NUR ---
Nutrition Assessment Notes Please refer to link for full assessment notes. Est Energy needs: 0050-6096 kcals (20-23 kcal/kgBW) Est Protein needs: 70-79 gms/day (0.8-0.9 gm/kgBW) d/t pt with elev RFTs Will continue to monitor and reassess prn. Addendum: 05/30/20 at [address] Amended: Links added.
[2020-05-30 17:00] VITALS: BP 140/63
[2020-05-30] MEDS: ATORVASTATIN 20 MG TAB PO SCH (17:36)
--- NOTE | 2020-05-30 18:58 | NUR ---
CBI shift output Total output on shift is 13,150ml
--- NOTE | 2020-05-30 19:17 | NUR ---
Opening Shift Note Assumed care of patient after receiving report from CANDI Vargas. Patient is awake and alert with no S/S of distress/SOB or pain. Call light within reach, bed in lowest locked position x2 side rails, HOB semi fowlers. Instructed on POC and to call for assist PRN, will continue to monitor for changes Q1hr and PRN.
--- NOTE | 2020-05-30 23:00 | NUR ---
Call to hospital Second call placed to hospitalist, first call placed at 22:00. Patient requesting laxative for no BM in 4 days. No pain or distress noted in patient. Awaiting call back.
[2020-05-30 23:24] VITALS: BP 139/73
--- NOTE | 2020-05-31 01:30 | NUR ---
Hospitalist called back Call back from hospitalist, received order for Colace and Lactulose. Orders read back and verified, orders input.
[2020-05-31] MEDS ORDERED: LACTULOSE 20Gm/30ML SOLN PO PRN (02:00)
--- NOTE | 2020-05-31 04:00 | NUR ---
Patient prep Per patient, Dr. Edmonds scheduled patient for procedure for 05/31 at 14:00. No orders noted. Patient has been NPO, CHG wipe and complete linen change performed. Blank consents and checklist in chart.
[2020-05-31 05:31] VITALS: BP 129/67
--- NOTE | 2020-05-31 06:57 | NUR ---
CBI output Patient had 8,500 ml of diaz red output in niño bag.
--- NOTE | 2020-05-31 07:30 | NUR ---
Opening Shift Note Assumed care of patient, who is alert and oriented x4. Respirations are even and unlabored. No S/S of distress/SOB or pain. CBI in place. Noted light red urine in urine collection bag. Bed is low locked with 2x side rails up. Call light is within reach. Instructed on POC and to call for assist PRN, will continue to monitor for changes Q1hr and PRN.
[2020-05-31 09:01] VITALS: BP 142/72
[2020-05-31] MEDS: amLODIPine BESYLATE 5 MG TAB PO SCH (09:55)
[2020-05-31] MEDS: levoFLOXacin 250MG 50 ML IV SCH (09:55)
[2020-05-31] MEDS: FERROUS SULFATE 325 MG TAB PO SCH ×2 (10:00→17:47)
[2020-05-31] MEDS: DOCUSATE SOD 100 MG CAP PO SCH ×2 (10:00→23:15)
[2020-05-31] MEDS: SOTALOL HCL 80 MG TAB PO SCH ×2 (10:00→22:00)
[2020-05-31] MEDS: FAMOTIDINE 20 MG TAB PO SCH (10:00)
--- NOTE | 2020-05-31 12:00 | NUR ---
Caitlyn alan swab Walked to lab by this RN.
[2020-05-31 13:00] VITALS: BP 140/75
--- NOTE | 2020-05-31 13:15 | NUR ---
CBI output CBI output: 6,600 ml of clear pink urine. CBI clamped at this time. Transporting patient to pre-op for procedure with Dr. Edmonds.
--- NOTE | 2020-05-31 13:21 | NUR ---
Patient off unit Patient taken to pre-op. CBI still in place. No distress noted upon departure.
--- NOTE | 2020-05-31 13:23 | NUR ---
Inhouse COVID swab Walked to lab by this RN.
[2020-05-31] MEDS ORDERED: ceFAZolin 1GM/50ML 50 ML IV ONE (13:28)
[2020-05-31] MEDS ORDERED: SUCCINYLCHOLINE CHLORIDE 20 MG/ML 10ML VIAL IV ONE (14:13)
[2020-05-31] MEDS ORDERED: LIDOCAINE 1% (LOCAL ANESTH.) PF 5ml SDV ONE (14:13)
[2020-05-31] MEDS ORDERED: MIDAZOLAM HCL 1MG/1ML-2 ML VIAL ONE (14:14)
[2020-05-31] MEDS ORDERED: ETOMIDATE (2MG/ML) 20ML VIAL IV ONE (14:16)
[2020-05-31] MEDS ORDERED: fentaNYL CITRATE 100 MCG/2 ML VL ONE (14:25)
[2020-05-31] MEDS ORDERED: NALOXONE HCL 0.4 MG/ML VIAL IV PRN (14:30)
[2020-05-31] MEDS ORDERED: HYDROmorphone HCL 2 MG/ML VL IV PRN (14:30)
[2020-05-31] MEDS ORDERED: ONDANSETRON HCL 4 MG/2 ML VIAL IV PRN (14:30)
[2020-05-31] MEDS ORDERED: PHENYLEPHRINE HCL 10 MG/ML VL ONE (14:32)
[2020-05-31] MEDS ORDERED: SODIUM CHLORIDE LOCK 10 ML ONE (14:32)
[2020-05-31] MEDS ORDERED: GLYCOPYRROLATE 0.2 MG/ML 1ML VIAL ONE (15:10)
[2020-05-31] MEDS ORDERED: NEOSTIGMINE 1 MG/ML INJ (10mg/10ML VIAL) ONE (15:10)
[2020-05-31] MEDS: HYDROmorphone HCL 2 MG/ML VL IV PRN ×2 (16:01→16:25)
[2020-05-31] MEDS ORDERED: DIGOXIN (250MCG/ML) 2 ML AMPULE IV ONE (16:30)
[2020-05-31 17:00] VITALS: BP 127/66
--- NOTE | 2020-05-31 17:23 | NUR ---
Back on unit Patient s/p cystoscopy with clot removal with Dr. Edmonds. Patient has CBI system intact. Noted clear yellow urine in collection bag. On O2 at 3L via nasal cannula. Denies SOB. Patient upgraded to telemetry. Tele #[id number] --SR 70's. Bed is low, locked with 2x side rails up. Call light is within reach. Bed alarm is on for safety. Will continue to monitor Q1hr and PRN.
[2020-05-31] MEDS: ATORVASTATIN 20 MG TAB PO SCH (17:46)
--- NOTE | 2020-05-31 19:45 | NUR ---
Opening Shift Note Pt is resting in bed with eyes open and resp rate is even and unlabored on 3L O2 by nc. CBI is infusing and clear yellow urine is returning. POC discussed with pt and pt verbalizes understanding. Bed is low, wheels are locked, and call light is with in reach.
[2020-05-31] MEDS: MORPHINE SULF INJ 2 MG/ML SYRINGE 1ML IV PRN (20:50)
[2020-05-31 22:00] VITALS: BP 104/62
[2020-06-01] MEDS: MORPHINE SULF INJ 2 MG/ML SYRINGE 1ML IV PRN ×3 (04:42→17:30)
[2020-06-01 05:00] VITALS: BP 126/73
--- NOTE | 2020-06-01 05:30 | NUR ---
CBI FLUID IN: 2000MLS FOR THIS SHIFT BERMUDEZ OUT: 2800MLS CLEAR YELLOW URINE FOR THIS SHIFT. please see I&O record.
[2020-06-01 07:23] LABS: Basophils # (auto) 0 10 ^3/uL (0-0.2); Basophils % (auto) 0.6 % (0.0-2.0); Eosinophils # (auto) 0.3 10 ^3/uL (0-0.8); Eosinophils % (auto) 3.6 % (0.0-7.0); Hematocrit 28.2 % (41.0-53.0); Hemoglobin 9.6 g/dL (13.5-17.5); Lymphocytes # (auto) 1.4 10 ^3/uL (0.4-5.4); Mean Corpuscular Hemoglobin 31.9 pg (28.0-32.0); Mean Corpuscular Volume 93.9 fL (80.0-100.0); Monocytes # (auto) 1.1 10 ^3/uL (0-1.3); Monocytes % (auto) 12.3 % (0.0-12.0); Neutrophils # (auto) 5.8 10 ^3/uL (1.6-8.6); Neutrophils % (auto) 67.5 % (37.0-80.0); Platelet Count (auto) 285 10^3/uL (140-450); Red Cell Distribution Width 13.1 % (11.8-14.3); White Blood Cell 8.6 10^3/uL (4.4-10.8)
[2020-06-01 07:39] LABS: BUN/Creatinine Ratio 14.1; Calcium 9.3 mg/dL (8.5-10.1)
--- NOTE | 2020-06-01 08:00 | NUR ---
Morning note Patient resting in bed with even and unlabored respirations, no distress noted. CBI is minimally open. Urine is clear. Instructed patient on POC, fall precautions and to call for assistance as needed. Patient verbalized understanding. Fall precautions in place with call light within reach.
[2020-06-01 09:44] VITALS: BP 114/58
--- NOTE | 2020-06-01 10:00 | NUR ---
RE: CBI stopped Urine is clear. No hematuria noted. CBI stopped per MD order. Instructed patient to notify staff immediately if any pressure or pain is noted in the lower abdominal area. Patient verbalized understanding. Call light within reach.
[2020-06-01] MEDS: levoFLOXacin 250MG 50 ML IV SCH (10:04)
[2020-06-01] MEDS: FERROUS SULFATE 325 MG TAB PO SCH ×2 (10:04→19:06)
[2020-06-01] MEDS: FAMOTIDINE 20 MG TAB PO SCH (10:05)
[2020-06-01] MEDS: amLODIPine BESYLATE 5 MG TAB PO SCH (10:06)
[2020-06-01] MEDS: SOTALOL HCL 80 MG TAB PO SCH ×2 (10:06→22:00)
[2020-06-01] MEDS: BELLADONNA ALKAL/OPIUM (16.2/30MG) RECT SUPP PR SCH (10:07)
[2020-06-01] MEDS: DOCUSATE SOD 100 MG CAP PO SCH ×2 (10:13→22:00)
[2020-06-01 12:44] VITALS: BP 117/56
--- NOTE | 2020-06-01 13:35 | NUR ---
RE: Bladder/CBI Patient had c/o pain in the lower medial abdomen. Patient stated "I had this same pain when the catheter clotted up." Pardo catheter is patent with clear urine noted. Bladder scan performed. <100ml of urine noted on bladder scan. Pardo catheter care performed along with eusebio care. patient tolerated well. Bed returned to lowest locked position with call light within reach.
--- NOTE | 2020-06-01 15:00 | NUR ---
Urine is clear; no hematuria noted Patient resting in bed with even and unlabored respirations, no distress noted. Call light within reach.
--- NOTE | 2020-06-01 16:00 | NUR ---
Patient ambulated with PT; FWW used as assistive device. Patient tolerated well.
[2020-06-01 16:35] VITALS: BP 143/75
[2020-06-01] MEDS: ATORVASTATIN 20 MG TAB PO SCH (19:06)
--- NOTE | 2020-06-01 19:24 | NUR ---
Care endorsed to Janeth Rothman RN. Patient resting in bed with even and unlabored respirations, no distress noted. CBI stopped. Urine is clear. Fall precautions in place with call light within reach.
[2020-06-01 22:00] VITALS: BP 97/49
[2020-06-02 05:00] VITALS: BP 128/61
[2020-06-02] MEDS: FERROUS SULFATE 325 MG TAB PO SCH (08:00)
--- NOTE | 2020-06-02 08:40 | NUR ---
at bedside MD García at bedside and Georgette with Urology aware of patient's status. New orders received, will dc as ordered with Pardo catheter switched to leg bag as ordered and pt to f/u with Urology on Thursday at 10am he verbalized understanding and states he will require taxi voucher to go home today. House sup notified.
[2020-06-02] MEDS: FAMOTIDINE 20 MG TAB PO SCH (08:57)
[2020-06-02] MEDS: DOCUSATE SOD 100 MG CAP PO SCH (08:57)
[2020-06-02] MEDS: SOTALOL HCL 80 MG TAB PO SCH (08:57)
[2020-06-02] MEDS: BELLADONNA ALKAL/OPIUM (16.2/30MG) RECT SUPP PR SCH (08:58)
[2020-06-02] MEDS: amLODIPine BESYLATE 5 MG TAB PO SCH (08:58)
[2020-06-02] MEDS: levoFLOXacin 250MG 50 ML IV SCH (08:58)
[2020-06-02 09:00] VITALS: BP 142/66
--- NOTE | 2020-06-02 12:35 | NUR ---
Patient's niño "leaking", pt states he "felt pressure on his bladder and just pushed it out and the niño leaked and started draining again" gown noted wet. Niño catheter manually irrigated at this time and no clots noted. No hematuria noted. No s/s of trauma noted, no active bleeding noted. Bladder soft to palpation. Niño noted patent, draining to gravity light dony colored urine. This rn informed MD García and he states "it's normal, dc home and f/u with urology on Thursday as scheduled". Patient informed and states pressure feeling no longer there and he will follow up as outpatient with Urology. Extensive teaching provided regarding niño catheter care at home he returned demonstration and verbalized understanding. Will dc as ordered
[2020-06-02 13:00] VITALS: BP 120/60
--- NOTE | 2020-06-02 16:51 | NUR ---
Discharge instructions given as ordered. Encourage to follow up with PMD as instructed. All questions and concerns addressed. Patient verbalized understanding. Medication reconciliation form completed and copy given to patient. Prescription meds delivered to bedside by [facility]. IV removed with catheter intact, pressure dressing applied, niño catheter patent and switched to leg bag. Patient educated on niño catheter care at home including emptying it, pt returned demonstration and verbalized understanding. Telemetry unit returned to ICU. Patient taken to taxi via wheelchair with all personal belongings, accompanied by staff. No distress noted at time of departure.
[2020-06-02 17:06] VITALS: BP 116/61
== END 2020-06-02 16:51 | disposition home or self-care (01) | DRG 669 ==
LOC: ER 11:18 → OVERFLOW 11:19 → CENTRAL 22:05 → TELE-CENTR 05-31 18:56
PROVIDERS: ADMIT Nurse Practitioner Acute Care; ATTEND Family Medicine
PROC: 0TCB8ZZ Extirpation of Matter from Bladder, Via Natural or Artificial Opening Endoscopic (ICD-10-PCS; 2020-05-31)
PROC: 0T5B8ZZ Destruction of Bladder, Via Natural or Artificial Opening Endoscopic (ICD-10-PCS; 2020-05-31)
PROC: 0T9B70Z Drainage of Bladder with Drainage Device, Via Natural or Artificial Opening (ICD-10-PCS; principal; 2020-05-31 14:09)
DX: N99.89 Other postprocedural complications and disorders of genitourinary system (principal); N17.9 Acute kidney failure, unspecified; R71.0 Precipitous drop in hematocrit; N39.0 Urinary tract infection, site not specified; R33.9 Retention of urine, unspecified; R31.9 Hematuria, unspecified; N18.30 Chronic kidney disease, stage 3 unspecified; I25.10 Atherosclerotic heart disease of native coronary artery without angina pectoris; F17.210 Nicotine dependence, cigarettes, uncomplicated; I48.91 Unspecified atrial fibrillation; E13.9 Other specified diabetes mellitus without complications; I12.9 Hypertensive chronic kidney disease with stage 1 through stage 4 chronic kidney disease, or unspecified chronic kidney disease; I25.708 Atherosclerosis of coronary artery bypass graft(s), unspecified, with other forms of angina pectoris; J44.9 Chronic obstructive pulmonary disease, unspecified; Z20.828 Contact with and (suspected) exposure to other viral communicable diseases; Z79.82 Long term (current) use of aspirin; Z79.84 Long term (current) use of oral hypoglycemic drugs; Z95.1 Presence of aortocoronary bypass graft; Z95.0 Presence of cardiac pacemaker; Z85.51 Personal history of malignant neoplasm of bladder
CPT/HCPCS: 36415; 71045; 80048; 80053; 81001; 83735; 85025; 85610; 85730; 86850; 86900; 86901; 87081; 87426; 93005; 96361; 96365; 96366; 97163; G0378; J0330; J0690; J0696; J2250; J2405

== ENCOUNTER → 2021-09-12 | Outpatient (CLI) | payer MEDICARE, OTHER ==
[~2021-09-12] MED LIST changes: +AMLO-489 PO; -AMLO5TAB15 PO
[2021-09-12 11:20] LABS: Basophils # (auto) 0.1 10 ^3/uL (0-0.2); Basophils % (auto) 0.9 % (0.0-2.0); Eosinophils # (auto) 0.4 10 ^3/uL (0-0.8); Eosinophils % (auto) 5.6 % (0.0-7.0); Hematocrit 40.9 % (41.0-53.0); Hemoglobin 13.6 g/dL (13.5-17.5); Lymphocytes # (auto) 1.4 10 ^3/uL (0.4-5.4); Lymphocytes % (auto) 20.6 % (10.0-50.0); Mean Corpuscular Hemoglobin 30.2 pg (28.0-32.0); Mean Corpuscular Hgb Conc. 33.2 g/dL (32.0-36.0); Mean Corpuscular Volume 90.9 fL (80.0-100.0); Monocytes # (auto) 0.7 10 ^3/uL (0-1.3); Monocytes % (auto) 10.6 % (0.0-12.0); Neutrophils # (auto) 4.1 10 ^3/uL (1.6-8.6); Neutrophils % (auto) 62.3 % (37.0-80.0); Nucleated Red Blood Cells % 0.1 %; Red Cell Distribution Width 13.4 % (11.8-14.3); White Blood Cell 6.7 10^3/uL (4.4-10.8)
[2021-09-12 11:24] LABS: Potassium 4.4 mmol/L (3.5-5.1)
[2021-09-12 11:33] LABS: Albumin 3.6 g/dL (3.4-5.0); BUN/Creatinine Ratio 11.9; Bilirubin, Total 0.7 mg/dL (0.2-1.0); Calcium 9.1 mg/dL (8.5-10.1); Total Protein 7.7 g/dL (6.4-8.2)
== END | disposition home or self-care (01) ==
LOC: LAB 10:35
PROVIDERS: ATTEND Internal Medicine
DX: C67.9 Malignant neoplasm of bladder, unspecified (principal); R31.9 Hematuria, unspecified
CPT/HCPCS: 36415; 80053; 85025; 87086